=== PATIENT | female | born 1985 | race Caucasian/White ===

== ENCOUNTER 2018-07-11 14:00 | Outpatient (CLI) | END 2018-07-11 17:50 | disposition home or self-care (01) ==

== ENCOUNTER 2018-08-12 13:55 | Outpatient (CLI) | END 2018-08-12 16:25 | disposition home or self-care (01) ==

== ENCOUNTER 2018-08-18 09:37 | Inpatient (IN) | END 2018-08-21 16:20 | disposition home or self-care (01) | DRG 766 ==